=== PATIENT | female | born 1975 | race Caucasian/White ===

== ENCOUNTER 2017-01-29 11:30 | Day surgery (SDC) | payer BC ==
--- NOTE | 2017-01-29 13:21 | Operative Note ---
Upper GI Endoscopy Procedure date: 01/29/17 Date of : 75 Procedure:Upper GI Endoscopy Esophagogastroduodenoscopy with cold biopsies Indications: Mrs. Tidwell is a 41-year-old female with dyspepsia and Crohn's disease. The patient was diagnosed with Crohn's disease at age 19. She did undergo ileocolonic resection [address] Dio Givens M.D[address] and at that time she was under the care of Dr. Derrick Niño Jr.. She is not on any maintenance of remission medications presently. She has more problems with constipation and bloating. She has developed epigastric abdominal pain and discomfort. She reports early satiety, nausea, bloating, indigestion, burping and reflux. She has occasional regurgitation. The patient has lost 20 pounds in the last 2-3 months. She has had marked stress. The patient's CAT scan recently showed no evidence of regional enteritis or inflammatory process. There were some nonobstructing nephrolithiasis. The patient's iron studies and B12 levels were normal. She did have IBD serologies that showed a double positive ASCA IgG and IgA antibodies. Panendoscopy is performed for further evaluation. She does state that her mother has Crohn's disease and her mother last year from advanced colon cancer. She reports no diarrhea or rectal bleeding. The patient does have bowel movements again from constipation to loose. She reports no fever. Performing Provider: Monica Up MD Referring Provider: Rosas Gann M.D. Sedation: Fentanyl 150 mg IV/Versed 7 mg IV Procedure: Prior to the procedure, a history and physical exam was performed, and patients medications and allergies were reviewed. The risks and benefits of the procedure and the sedation options and risks were discussed with the patient. All questions were answered and informed consent was obtained. The patient was brought to the procedure room. Patient identification and proposed procedure were verified by the physician and the nurse. The patient was placed in a left lateral decubitus position and the scope was passed under direct vision. Throughout the procedure, the patient's blood pressure, pulse, and oxygen saturations were monitored continuously. The endoscope was introduced through the mouth, and advanced to the second part of duodenum. The upper GI endoscopy was accomplished without difficulty. The patient tolerated the procedure well. Findings: The scope was passed directly into the upper esophagus and advanced to the third portion of the duodenum. The post bulbar duodenum and duodenal bulb were normal with normal mucosa and conniventes. 4 biopsies were taken from the post bulbar duodenum and duodenal bulb to rule out celiac disease. The scope was withdrawn through a normal duodenal bulb and pylorus into the stomach. There was very minimal linear erythema of the antrum consistent with mild linear reactive gastritis. The remainder of the antrum, body and fundus of the stomach were grossly normal. Upon retroflexion there was no hiatal hernia. 2 biopsies were taken in the antrum and along the lesser curvature for histology and/or CLOtest. The scope was then withdrawn into the esophagus. There was no evidence of reflux esophagitis or Garcia's esophagus. There was a serrated Z line consistent with nonerosive gastroesophageal reflux disease. There was evidence of mild esophageal dysmotility/esophageal dyskinesia. The remainder of the esophageal mucosa was normal. Immediate complications: None EBL (ml): 0 Impression: 1. Nonerosive gastroesophageal reflux disease with mild esophageal dysmotility/ esophageal dyskinesia 2. Very mild linear reactive gastritis/antritis Recommendations: I will follow-up the biopsies. 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 I will proceed with diagnostic colonoscopy for further evaluation. at 1321
--- NOTE | 2017-01-29 13:27 | Operative Note ---
Colonoscopy ([facility]) Procedure date: 01/29/17 Date of : 75 Procedure:Colonoscopy Colonoscopy with cold biopsies Indications: Mrs. Tidwell is a 41-year-old female with dyspepsia and Crohn's disease. The patient was diagnosed with Crohn's disease at age 19. She did undergo ileocolonic resection [address] Dio Givens M.D. and at that time she was under the care of Dr. Derrick Niño Jr.. She is not on any maintenance of remission medications presently. She has more problems with constipation and bloating. She has developed epigastric abdominal pain and discomfort. She reports early satiety, nausea, bloating, indigestion, burping and reflux. She has occasional regurgitation. The patient has lost 20 pounds in the last 2-3 months. She has had marked stress. The patient's CAT scan recently showed no evidence of regional enteritis or inflammatory process. There were some nonobstructing nephrolithiasis. The patient's iron studies and B12 levels were normal. She did have IBD serologies that showed a double positive ASCA IgG and IgA antibodies. Panendoscopy is performed for further evaluation. She does state that her mother has Crohn's disease and her mother last year from advanced colon cancer. She reports no diarrhea or rectal bleeding. The patient does have bowel movements again from constipation to loose. She reports no fever. Performing Provider: Monica Up MD Referrring Provider: Rosas Gann M.D. Sedation: Fentanyl 200 mg IV/Versed 15 mg IV (cumulative for EGD/colonoscopy sedation) Procedure: Prior to the procedure, a history and physical exam was performed, and patient medications and allergies were reviewed. The risks and benefits of the procedure and the sedation options and risks were discussed with the patient. All questions were answered and informed consent was obtained. Patient identification and proposed procedure were verified by the physician and the nurse. The patient was placed in a left lateral decubitus position. Throughout the procedure, the patient's blood pressure, pulse, and oxygen saturations were monitored continuously. Findings: On digital rectal examination there was normal rectal tone. There were no external hemorrhoids. The colonoscope was introduced through the anal canal to the rectum and advanced to the ileocolonic anastomosis. The anastomosis was end to side anastomosis and there was anastomotic ulceration and mild stenosis. The scope was gently advanced into the ileum and advanced approximately 15-20 cm into the ileum. There was minor Crohn's disease identified in the last 2 or 3 cm and moderate ulceration at the anastomosis. There was no evidence of proximal Crohn's disease within the ileum. The colonoscope was then withdrawn into the colon. Cold biopsies were taken from the ileum. The remaining ascending, transverse, descending, sigmoid and rectum were grossly normal. There was some colonic redundancy and mild colonic dysmotility. There were no mucosal abnormalities identified. Upon retroflexion within the rectum there were grade 1 internal hemorrhoids. Impressions: 1. Crohn's ileitis (mild to moderate) with only involvement of distal 3 cm but moderate anastomotic ulceration and end to side anastomosis 2. Moderate colonic redundancy 3. Grade 1 internal hemorrhoids Recommendations: I do not feel that the patient's pain and symptoms are primarily Crohn's disease but rather SIBO (small intestinal bacterial overgrowth). I would consider Xifaxan and additional treatment including fiber bowel regimen, dietary measures and treatment for visceral sensitivity. I will follow-up the biopsies. Complications: None EBL (ml): 0 at 1326
[2017-01-29 14:58] VITALS: BP 101/69
== END 2017-01-29 14:40 | disposition home or self-care (01) ==
LOC: SDC 11:30
PROVIDERS: Internal Medicine Gastroenterology
PROC: 0DB98ZX Excision of Duodenum, Via Natural or Artificial Opening Endoscopic, Diagnostic (ICD-10-PCS; 2017-01-29)
PROC: 0DB68ZX Excision of Stomach, Via Natural or Artificial Opening Endoscopic, Diagnostic (ICD-10-PCS; 2017-01-29)
PROC: 0DBB8ZX Excision of Ileum, Via Natural or Artificial Opening Endoscopic, Diagnostic (ICD-10-PCS; principal; 2017-01-29 12:30)
DX: K50.10 Crohn's disease of large intestine without complications (principal); K21.9 Gastro-esophageal reflux disease without esophagitis; K22.4 Dyskinesia of esophagus; K64.0 First degree hemorrhoids; K29.70 Gastritis, unspecified, without bleeding; A49.9 Bacterial infection, unspecified

== ENCOUNTER → 2017-05-29 | Outpatient (CLI) | payer BC ==
[2017-05-29 17:37] LABS: HEMOGLOBIN 12.3 g/dL (12.2-16.2); LYMPH # 1.2 K/mm3 (0.7-4.5); LYMPH % 28.1 % (10-50.0)
[2017-05-29 18:28] LABS: BUN 7 mg/dL (7-18)
[2017-05-29 18:58] LABS: GFR (ESTIMATED) 110 ML/MIN (59-)
== END ==
LOC: LAB 17:20
PROVIDERS: Nurse Practitioner Acute Care
DX: K50.80 Crohn's disease of both small and large intestine without complications (principal)

== ENCOUNTER 2017-09-28 09:00 | Outpatient (CLI) | payer OTHER ==
[2017-09-28] MEDS ORDERED: LINZESS145 MCG PO (09:25)
[2017-09-28] MEDS ORDERED: RANITIDINE HCL300 M1 PO (09:26)
[2017-09-28] MEDS ORDERED: MULTI-VITAMIN1 EAC2 PO (09:33)
[2017-09-28 09:35] VITALS: BP 127/79
[2017-09-28 09:50] VITALS: BP 121/74
== END 2017-09-28 10:00 | disposition home or self-care (01) ==
LOC: COP 09:00
DX: D64.9 Anemia, unspecified (principal)
CPT/HCPCS: Q0138

== ENCOUNTER 2017-10-01 12:00 | Outpatient (CLI) | payer BC ==
[2017-10-01 12:19] VITALS: BP 105/54
[2017-10-01 12:39] LABS: HEMOGLOBIN 9.3 g/dL (12.2-16.2)
[2017-10-01 12:50] VITALS: BP 107/51
== END 2017-10-01 13:00 | disposition home or self-care (01) ==
LOC: COP 12:00 → RAD 13:00 → COP 13:00
PROVIDERS: Internal Medicine Gastroenterology
DX: D64.9 Anemia, unspecified (principal)
CPT/HCPCS: Q0138

== ENCOUNTER → 2017-10-01 | Outpatient (CLI) | payer OTHER ==
[~2017-10-01] MED LIST: LINZESS145 MCG PO; MULTI-VITAMIN1 EAC2 PO; RANITIDINE HCL300 M1 PO
--- NOTE | 2017-10-01 20:57 | RADIOLOGY REPORT PS360 ---
US PELVIS-TRANSVAGINAL ONLY HISTORY: HEAVY BLEEDING ORDERING PHYSICIAN: MONICA DEGROOT PATIENT AGE: 41 years COMPARISON: None FINDINGS: The uterus measures 9.4 x 4.6 x 4.3 cm with a combined meter thickness of 9 mm. There is an oval 14 x 3 mm area of increased echogenicity within the fundus of the uterus. This is of questioned clinical significance and could be related to asymmetric thickening or even a small polyp. The right ovary is 2.6 x 2 cm and the left ovary is 3.6 x 2.6 cm. There is a 2 cm left ovarian cyst. No cul-de-sac fluid apparent. There is bilateral ovarian blood flow. IMPRESSION: 1. Endometrial thickness upper normal with possible endometrial polyp or asymmetric endometrial thickening 2. 2 cm left ovarian cyst
== END ==
LOC: COP 09-27 13:00
DX: N92.0 Excessive and frequent menstruation with regular cycle (principal); R10.2 Pelvic and perineal pain

== ENCOUNTER → 2017-10-04 | Outpatient (CLI) | payer OTHER ==
[2017-10-04 10:08] LABS: LYMPH % 30.2 % (10-50.0)
[2017-10-04 11:11] LABS: BUN 11 mg/dL (7-18)
[2017-10-04 11:21] LABS: GFR (ESTIMATED) 92 ML/MIN (59-)
== END ==
LOC: LAB 09:22
PROVIDERS: Nurse Practitioner Obstetrics & Gynecology
DX: N92.0 Excessive and frequent menstruation with regular cycle (principal); D64.9 Anemia, unspecified; Z01.812 Encounter for preprocedural laboratory examination

== ENCOUNTER 2017-10-08 06:56 | Day surgery (SDC) | payer OTHER ==
[~2017-10-08] VITALS: Ht 165.1 cm; Wt 65.8 kg
--- NOTE | 2017-10-08 09:47 | Operative Note ---
Procedure/Operative Record Procedure Date of procedure: 10/08/17 Pre-Op Dx: Menorrhagia, polyp, anemia Post-Op Dx: Menorrhagia, polyp, anemia Procedure performed: Hysteroscopy, myosure, NovaSure ablation Surgeon: Dr. Jhonny Vergara [employer] Field(s): None Anesthesia: Sushil Dutton EBL (ml): 25 Clinical note: She is a 41-year-old lady who complains of extremely heavy periods. An ultrasound showed a possible polyp within the endometrial cavity. She is also known to be anemic. As result of that she was offered hysteroscopy, myosure polypectomy and NovaSure ablation. Operative findings: She had lush endometrial cavity. There were some polypoid areas within the endometrium which were removed with the myosure device. The endometrial cavity sounded to 9.5 cm and was 4.5 cm wide. We set 6.5 as the length of the endometrial cavity on the myosure device. Operative note: She was taken the operating room where LMA anesthesia was found be adequate. She was prepped and draped in normal sterile fashion in the lithotomy position. A weighted speculum was placed in the vagina and the anterior lip of the cervix was grasped with a tenaculum. [place] dilators used to dilate the cervix to approximately 6 mm. We then inserted the myosure scope within the endometrial cavity. The findings were as previous see dictated. Then using the myosure device I was able to remove the endometrium from the endometrial cavity. I then sounded the uterus and it was found be 9.5 cm. The NovaSure device was then placed within the uterine cavity with the length of 6.5 cm. The width was found to be 4.5 cm. These findings were then placed within the NovaSure device. The device was then run through its program. I injected 20 mL of 0.5 percent ropivacaine at the 5:00 and 7:00 positions of the cervix. The patient tolerated the procedure well and was taken to the recovery room in excellent condition. All sponge an isthmic counts were correct. The estimated blood loss was less than 25 mL. Conplications: None Specimens: Endometrial sampling at 0962
--- NOTE | 2017-10-08 09:49 | Anesthesia Record ---
Anesthesia Record Part I Total IV fluids: 1000 EBL (ml): 25 Urine Output: 25 B/P: 99/56 % SaO2: 97 Pulse: 78 Resps: 16 Temp: 97.8 Patient is: Drowsy, Stable Stable to PACU at: 0940 at 0949
--- NOTE | 2017-10-08 09:50 | Anesthesia Record ---
Anesthesia Record Part II Discharge time: 1010 Destination: Same day surgery PACU nurse assessment review? Yes Patient is: Stable Anesthesia complications? No at 0963
[2017-10-08 13:16] VITALS: BP 101/64
== END 2017-10-08 10:55 | disposition home or self-care (01) ==
LOC: SDC 06:56
PROVIDERS: Nurse Practitioner Obstetrics & Gynecology
PROC: 0UDB8ZZ Extraction of Endometrium, Via Natural or Artificial Opening Endoscopic (ICD-10-PCS; principal; 2017-10-08 08:45)
DX: N92.0 Excessive and frequent menstruation with regular cycle (principal); N84.0 Polyp of corpus uteri; D64.9 Anemia, unspecified; Z90.49 Acquired absence of other specified parts of digestive tract; F17.210 Nicotine dependence, cigarettes, uncomplicated; Z79.899 Other long term (current) drug therapy; Z80.0 Family history of malignant neoplasm of digestive organs; Z80.3 Family history of malignant neoplasm of breast; Z88.5 Allergy status to narcotic agent; K21.9 Gastro-esophageal reflux disease without esophagitis; K59.00 Constipation, unspecified
CPT/HCPCS: J0131; J2405

== ENCOUNTER → 2017-11-01 | Outpatient (CLI) | payer OTHER ==
--- NOTE | 2017-11-01 17:54 | RADIOLOGY REPORT PS360 ---
ABD ACUTE(MUL VIEWS) HISTORY: Constipation, history of Crohn's disease, CROHNS, CONSTIPATION ORDERING PHYSICIAN: Teodora AMBRIZ PATIENT AGE: 41 years COMPARISON: None FINDINGS: Frontal view of the chest shows no acute finding. Upright and supine views of the abdomen show a nonspecific nonobstructive bowel gas pattern. Suture line clip is present in the right mid abdominal region. No urolithiasis or acute bony anomalies. IMPRESSION: No acute finding, postsurgical change
== END ==
LOC: RAD 16:10
DX: K50.919 Crohn's disease, unspecified, with unspecified complications (principal); K59.03 Drug induced constipation